=== PATIENT | male | born 1940 | race Caucasian/White ===

== ENCOUNTER 2020-06-07 11:42 | Outpatient (CLI) | payer MEDICARE ==
--- NOTE | 2020-06-07 15:17 | PET ---
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 Initial staging. FINDINGS: Markedly increased activity is associated with the heterogeneous, large soft tissue density mass centered at the right tongue base. Max SUV 21.4. No abnormal uptake is associated with cervical lymph nodes. Centered within the left thyroid lobe, a focus of increased radiotracer uptake shows max SUV 54.0. It is associated with a subtle hypodense 1.8 cm nodule on recent CT exam. A left common femoral lymph node just below the level of the lesser trochanter shows max SUV 3.1 and measures up to 2.8 cm length. Physiologic uptake of radiotracer throughout the enteric system and along each urinary tract. Nondiagnostic CT attenuation correction images show azygous fissure at the right lung apex. Scattered calcified granulomata of the lungs are consistent with healed granulomatous disease. Prominent calcification of the coronary arteries and other arterial structures. A 0.9 cm low-density pleural-based nodule at the right posterior lung base is not hypermetabolic. A 1.1 cm hyperdense cyst projecting anteriorly from the superior pole of the left kidney is not hypermetabolic. 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 No evidence of complication. A 2.1 cm simple cyst projects laterally from the right kidney. Diverticula of the colon without adjacent inflammation. Pelvic fat protrudes into the right inguinal hernia that does not contain bowel. IMPRESSION : Markedly hypermetabolic activity associated with the tongue base mass. No evidence of cervical adenop athy. Markedly hypermetabolic left thyroid lobe mass. Suspicious for a second primary neoplasm. Please cons ider dedicated thyroid sonogram and sonographic guided FNA for further evaluation. Slightly hypermetabolic enlarged left femoral lymph node. Not a typical morphologic appearance for si mple reactive inflammation. At the same time as the thyroid sonogram/evaluation, thigh sonogram and sonographic guided FNA of the enlarged lymph node should be considered.
== END 2020-06-07 11:43 | disposition home or self-care (01) ==
LOC: PET 11:42
PROVIDERS: ATTEND Internal Medicine Hematology & Oncology
DX: C01 Malignant neoplasm of base of tongue (principal); E07.89 Other specified disorders of thyroid; R59.0 Localized enlarged lymph nodes
CPT/HCPCS: 78815; 82565; A9552; 36415

== ENCOUNTER 2020-06-25 13:20 | Outpatient (CLI) | payer MEDICARE ==
[2020-06-25 17:43] LABS: #Eosinphils 0.1 10x3/uL (0.0-0.5); #Monocytes 1.5 10x3/uL (0.0-1.1); %Basophils 0.3 % (0.0-2.0); %Eosinophils 0.5 % (0.0-6.0); %Lymphocytes 17.9 % (18.0-47.0); %Monocytes 12.6 % (0.0-10.0); %Neutrophils 68.4 % (40.0-75.0); Hemoglobin 13.3 g/dL (14.0-18.0); Mean Corpuscular HGB CONC 33.2 G/DL (32.0-36.0); Mean Corpuscular Hemoglobin 27.1 PG (27.0-33.0); Mean Corpuscular Volume 81.8 fl (80.0-100.0); Mean Platelet Volume 11.1 fl (7.4-10.4); Platelet Count 257 10x3/uL (130-400); RBC Distribution Width 14.1 % (11.5-14.5); White Blood Cell (WBC) Count 11.8 10x3/uL (4.5-11.0)
[2020-06-25 17:55] LABS: Anion Gap 13 mmol/L (10-20); BUN (Urea Nitrogen) 23 mg/dL (8.4-25.7); Calc. Creatinine Clearance 0 mL/min (70-130); Calcium 8.6 mg/dL (7.8-10.44); Carbon Dioxide 28 mmol/L (23-31); Chloride 92 mmol/L (98-107); Glucose 86 mg/dL (83-110); Potassium 3.8 mmol/L (3.5-5.1); Sodium 129 mmol/L (136-145)
[2020-06-26 02:16] LABS: SARS-CoV-2 MS2 Positive; SARS-CoV-2 N Gene Negative; SARS-CoV-2 S Gene Negative; SARS-CoV-2 by NAA Not Detected (NotDetected); SARS-CoV-2 orf1ab Negative
== END 2020-06-25 13:21 | disposition home or self-care (01) ==
LOC: LABBT 13:20
PROVIDERS: ATTEND Specialist
DX: Z01.818 Encounter for other preprocedural examination (principal); Z20.828 Contact with and (suspected) exposure to other viral communicable diseases
CPT/HCPCS: 80048; 85025; 93005; U0003; 87635; 93010

== ENCOUNTER 2020-06-28 08:07 | Day surgery (SDC) | payer MEDICARE ==
[2020-06-27 10:45] VITALS: BMI 23.3
[2020-06-28] MEDS ORDERED: Lidocaine 1% w/Epinephrine 1:100K 20 ML VIAL ONE (11:15)
[2020-06-28] MEDS ORDERED: Bupivacaine 0.25% HCL 30 ML VIAL ONE (11:15)
[2020-06-28] MEDS ORDERED: Fentanyl 100 MCG/2 ML VIAL ONE (11:17)
[2020-06-28] MEDS ORDERED: Propofol 1,000 MG/100 ML VIAL IV ONE (11:17)
--- NOTE | 2020-06-28 13:13 | RAD ---
SINGLE VIEW CHEST: Date: 06/28/2020 COMPARISON: PET/CT 06/07/2020. HISTORY: Malignant neoplasm of base of tongue. MediPort insertion. FINDINGS: Single view of the chest shows a normal sized cardiomediastinal silhouette. The patient is status pos t sternotomy. Atherosclerotic calcifications are seen in the aorta. There is a right subclavian MediP ort with its tip in the superior vena cava. No pneumothorax is seen. There is no evidence of consolid ation, mass, or pleural effusion. Degenerative changes are seen in the spine. IMPRESSION: Status post MediPort placement without evidence of complication. POS: EAA
--- NOTE | 2020-06-28 13:38 | OP ---
DATE OF PROCEDURE: 06/28/2020 PREOPERATIVE DIAGNOSIS: Squamous cell carcinoma of the tongue. POSTOPERATIVE DIAGNOSIS: Squamous cell carcinoma of the tongue. PROCEDURES PERFORMED: Placement of right subclavian low-profile power compatible MediPort, placement of percutaneous endoscopic gastrostomy tube. ANESTHESIA: Total intravenous anesthesia. INDICATIONS: The patient is a 80-year-old white male. He has recently been diagnosed with squamous cell carcinoma of his tongue. He is undergoing chemotherapy and radiation therapy for this. I have been requested to place a MediPort for chemotherapy administration. As is anticipated that he will have significant dysphagia, PEG tube placement has been requested to maintain appropriate nutrition. DESCRIPTION OF PROCEDURE: Informed consent was obtained. The patient was taken to the operating room where total intravenous anesthesia was obtained with the patient in supine position. The chest was prepped with ChloraPrep and draped in sterile fashion. Local anesthetic was infiltrated using a mixture of 1% lidocaine with epinephrine and 0.25% Marcaine. A large-gauge needle was passed under the clavicle in the subclavian vein. Guidewire was passed through the needle and fluoroscopically confirmed to enter the superior vena cava. Additional local anesthetic was infiltrated and transverse incision was created based on needle insertion site. Subcutaneous pocket was dissected. Introducer dilator was passed over the guidewire under fluoroscopic guidance. The wire and dilator were removed. Catheter was passed through the introducer and the introducer was removed in the usual peel-apart fashion. Catheter tip was positioned at the atriocaval junction and the catheter was trimmed to appropriate length and secured to the locking hub of the MediPort. The port was placed in the subcutaneous pocket and secured in place with 3-0 Prolene sutures. The wound was closed in layers of 3-0 and 4-0 Monocryl. Dermabond was placed externally. Additional local anesthetic was infiltrated on the port. The port was accessed with the access needle and it aspirated blood freely and this was flushed with heparinized saline. A sterile occlusive dressing was applied over the port and the access needle. Attention was turned to the gastrostomy tube placement. A gastroscope was advanced in the mouth and down the esophagus without difficulty. The stomach was insufflated and the anterior wall of the stomach was identified with external compression of the abdominal skin. A site was selected in the left upper quadrant. Local anesthetic was infiltrated. Small incision was created. An Angiocath was advanced through the incision into the lumen of the stomach. Guidewire was passed through the Angiocath. This was grasped using a snare. The wire was then withdrawn back through the mouth. The wire was secured to the tapered end of the PEG tube and the complex was then pulled back through the oropharynx and out through the abdominal wall in the usual pull-through fashion. The external flange was placed along with a split gauze dressing and antibiotic ointment. The PEG tube was trimmed to appropriate length and external connections were applied. Sterile dressing was applied over the PEG tube. There were no complications with either procedure. The patient tolerated the procedure well. At the end of the procedure, as he was waking up, he did cough and there was blood noted when he coughed. This was presumed to have been from the cancer on his tongue, which may have been irritated during the course of passing of the scope. His bleeding from this appeared to have been self-limited. Job ID: [id number]
== END 2020-06-28 14:20 | disposition home or self-care (01) ==
LOC: SDC 08:07
PROVIDERS: ATTEND Specialist
PROC: 0JH63WZ Insertion of Totally Implantable Vascular Access Device into Chest Subcutaneous Tissue and Fascia, Percutaneous Approach (ICD-10-PCS; principal; 2020-06-28)
PROC: 02HV33Z Insertion of Infusion Device into Superior Vena Cava, Percutaneous Approach (ICD-10-PCS; 2020-06-28)
PROC: 0DH63UZ Insertion of Feeding Device into Stomach, Percutaneous Approach (ICD-10-PCS; 2020-06-28)
DX: C01 Malignant neoplasm of base of tongue (principal); R13.19 Other dysphagia; I10 Essential (primary) hypertension; E78.00 Pure hypercholesterolemia, unspecified; I25.10 Atherosclerotic heart disease of native coronary artery without angina pectoris; Z79.01 Long term (current) use of anticoagulants; Z79.899 Other long term (current) drug therapy; Z88.1 Allergy status to other antibiotic agents; Z88.2 Allergy status to sulfonamides; Z88.5 Allergy status to narcotic agent; Z95.1 Presence of aortocoronary bypass graft
CPT/HCPCS: 36561; 43246; 71045; C1788; J0690; J1642; J2704; J3010; S0020

== ENCOUNTER 2020-10-02 09:35 | Outpatient (CLI) | payer MEDICARE | END 2020-10-02 09:36 | disposition home or self-care (01) | LOC: PET 09:35 | PROVIDERS: ATTEND Internal Medicine Hematology & Oncology | DX: C01 Malignant neoplasm of base of tongue (principal); E07.9 Disorder of thyroid, unspecified | CPT/HCPCS: 78815; A9552 ==

== ENCOUNTER 2021-06-24 11:26 | Outpatient (CLI) | payer MEDICARE ==
[2021-06-24 13:08] LABS: #Basophils 0.1 10x3/uL (0.0-0.2); #Monocytes 1.1 10x3/uL (0.0-1.1); #Neutrophils 10.9 10x3/uL (1.5-8.4); %Basophils 0.4 % (0.0-2.0); Hemoglobin 13.4 g/dL (13.5-17.5); Mean Corpuscular HGB CONC 33.1 g/dL (32.0-36.0); Mean Corpuscular Hemoglobin 28.6 pg (27.0-33.0); Mean Corpuscular Volume 86.5 fl (81.2-95.1); Platelet Count 226 10x3/uL (150-450); RBC Distribution Width 13.3 % (11.5-14.5); Red Blood Cell (RBC) Count 4.68 10x6/uL (4.32-5.72); White Blood Cell (WBC) Count 13.2 10x3/uL (3.5-10.5)
[2021-06-24 13:47] LABS: Anion Gap 13 mmol/L (10-20); BUN (Urea Nitrogen) 15 mg/dL (8.4-25.7); Calc. Creatinine Clearance 0 mL/min (70-130); Calcium 8.8 mg/dL (7.8-10.44); Carbon Dioxide 29 mmol/L (23-31); Chloride 95 mmol/L (98-107); Glucose 94 mg/dL (83-110); Potassium 3.4 mmol/L (3.5-5.1); Sodium 134 mmol/L (136-145)
[2021-06-25 11:02] LABS: SARS-CoV-2 PCR by NAA Not Detected (NotDetected)
== END 2021-06-24 11:27 | disposition home or self-care (01) ==
LOC: LABBT 11:26
PROVIDERS: ATTEND Specialist
DX: Z01.818 Encounter for other preprocedural examination (principal); K40.90 Unilateral inguinal hernia, without obstruction or gangrene, not specified as recurrent; Z20.822 Contact with and (suspected) exposure to COVID-19
CPT/HCPCS: 80048; 85025; 93005; U0003; U0005; 93010

== ENCOUNTER 2021-06-27 08:41 | Day surgery (SDC) | payer MEDICARE ==
[2021-06-25 12:12] VITALS: BMI 20.9
[2021-06-27] MEDS ORDERED: Ketorolac Tromethamine 30 MG/ML VIAL ONE (09:06)
[2021-06-27] MEDS ORDERED: Acetaminophen 500 MG TAB ONE (09:06)
[2021-06-27] MEDS ORDERED: ceFAZolin 2 GM/DEX 5% 100 ML BAG ONE (09:06)
[2021-06-27] MEDS ORDERED: Fentanyl 100 MCG/2 ML VIAL ONE ×2 (09:55→13:33)
[2021-06-27] MEDS ORDERED: Lidocaine 1% w/Epinephrine 1:100K 20 ML VIAL ONE (11:10)
[2021-06-27] MEDS ORDERED: Bupivacaine 0.25% 10 ML VIAL ONE (11:10)
[2021-06-27] MEDS ORDERED: Rocuronium Bromide 10 MG/ML (10ML VIAL) ONE (11:37)
[2021-06-27] MEDS ORDERED: Lidocaine 1% PF 5 ML VIAL ONE (11:37)
[2021-06-27] MEDS ORDERED: Glycopyrrolate 0.2 MG/ML 5 ML SYRINGE ONE (11:37)
[2021-06-27] MEDS ORDERED: Ondansetron PF 4 MG/2 ML Vial ONE (11:37)
[2021-06-27] MEDS ORDERED: ePHEDrine 50 MG/ML VIAL ONE (11:37)
[2021-06-27] MEDS ORDERED: Dexamethasone 20 MG/5 ML VIAL ONE (11:37)
[2021-06-27] MEDS ORDERED: PROPOFOL 200 MG/20 ML VIAL ONE (11:37)
[2021-06-27] MEDS ORDERED: HYDROmorphone 2 MG/ML VIAL ONE (11:55)
[2021-06-27] MEDS ORDERED: HYDROcodone/Acetaminophen 5/325 mg Tablet ONE (14:46)
== END 2021-06-27 15:35 | disposition home or self-care (01) ==
LOC: SDC 08:41
PROVIDERS: ATTEND Specialist
PROC: 0YU64JZ Supplement Left Inguinal Region with Synthetic Substitute, Percutaneous Endoscopic Approach (ICD-10-PCS; principal; 2021-06-27)
DX: K40.90 Unilateral inguinal hernia, without obstruction or gangrene, not specified as recurrent (principal); I10 Essential (primary) hypertension; I25.10 Atherosclerotic heart disease of native coronary artery without angina pectoris; E78.00 Pure hypercholesterolemia, unspecified; Z79.01 Long term (current) use of anticoagulants; Z79.899 Other long term (current) drug therapy; Z88.1 Allergy status to other antibiotic agents; Z88.2 Allergy status to sulfonamides; Z88.5 Allergy status to narcotic agent; Z95.1 Presence of aortocoronary bypass graft
CPT/HCPCS: 49650; C1781; J1100; J1170; J1885; J2405; J2704; J3010; J3490; S0020